=== PATIENT | female | born 2000 | race Caucasian/White ===

== ENCOUNTER 2023-12-22 00:54 | Inpatient (IN) | payer BC, MEDICAID ==
[2023-12-22 01:24] VITALS: BMI 28.6
[2023-12-22] MEDS ORDERED: fentaNYL 50 mcg/mL 1 mL Vial SLOW IVP PRN (01:58)
[2023-12-22] MEDS ORDERED: Tranexamic Acid 1,000 MG/10 ML VIAL IVP PRN (01:58)
[2023-12-22] MEDS ORDERED: Promethazine HCl 25 MG/ML VIAL IM PRN ×2 (02:00→06:17)
[2023-12-22] MEDS ORDERED: Ibuprofen 800 MG TAB PO PRN (02:00)
[2023-12-22] MEDS ORDERED: Carboprost 250 MCG/ML AMP IM PRN (02:00)
[2023-12-22] MEDS ORDERED: Misoprostol 200 MCG TAB RC PRN (02:00)
[2023-12-22] MEDS ORDERED: hydrALAZINE 20 MG/ML VIAL SLOW IVP PRN ×2 (02:00→12:34)
[2023-12-22] MEDS ORDERED: Acetaminophen 500 MG TAB PO PRN (02:00)
[2023-12-22] MEDS ORDERED: Diphenoxylate HCl/Atropine Tablet PO PRN ×2 (02:00)
[2023-12-22] MEDS ORDERED: HYDROcodone/Acetaminophen 5/325 mg Tablet PO PRN ×3 (02:00→12:34)
[2023-12-22] MEDS ORDERED: Methylergonovine 0.2 MG/ML VIAL IM PRN (02:00)
[2023-12-22] MEDS ORDERED: Lidocaine 1% (PF) 30 ML VIAL SC PRN (02:00)
[2023-12-22] MEDS ORDERED: Ondansetron PF 4 MG/2 ML Vial IVP PRN ×3 (02:00→12:34)
[2023-12-22 02:25] LABS: Hemoglobin 11.7 g/dL (12.0-15.5); Mean Corpuscular HGB CONC 34.4 g/dL (32.0-36.0); Mean Corpuscular Hemoglobin 28.3 pg (27.0-33.0); Mean Corpuscular Volume 82.1 fl (81.6-98.3); Mean Platelet Volume 11.1 fl (7.4-10.4); Platelet Count 246 10x3/uL (150-450); RBC Distribution Width 13.6 % (11.5-14.5); Red Blood Cell (RBC) Count 4.14 10x6/uL (3.90-5.03)
[2023-12-22 03:01] LABS: Syphilis Antibody Nonreactive (Nonreactive); Syphilis Antibody Index 0.28 S/CO (<1.00 Non-Reactive)
[2023-12-22 03:03] LABS: HBsAg Index 0.15 S/CO (0-0.99); Hep B Surf Ag - L&D Non-Reactive S/CO (NonReactive)
[2023-12-22] MEDS: Lactated Ringer's 1,000 ML IV SCH (05:30)
[2023-12-22] MEDS: fentaNYL/Ropivacaine Epidural 100 ML ONE (06:12)
[2023-12-22] MEDS ORDERED: ePHEDrine Sulfate 50 MG/10 ML VIAL SLOW IVP PRN (06:17)
[2023-12-22] MEDS ORDERED: Naloxone HCl 0.4 mg/ml Vial IVP PRN ×2 (06:17)
[2023-12-22] MEDS ORDERED: Acetaminophen 325 MG TAB PO PRN (06:17)
[2023-12-22] MEDS ORDERED: Moisturizing Cream (Eucerin) 113 GM JAR TOP PRN (06:17)
[2023-12-22] MEDS ORDERED: diphenhydrAMINE 50 MG/ML VIAL IVP PRN (06:17)
[2023-12-22] MEDS ORDERED: Lactated Ringer's 500 ML IV PRN (06:17)
[2023-12-22] MEDS ORDERED: fentaNYL 2 mcg/Ropivacaine 0.2% Epidural 100 ML CADD EPIDURAL SCH (06:30)
[2023-12-22] MEDS ORDERED: Communication Order-Pharmacy FS SCH (06:30)
[2023-12-22] MEDS: Oxytocin 30 units/NS 500 ML 500 ML IV SCH (06:45)
[2023-12-22] MEDS: Oxytocin 30 units/NS 500 ML 500 ML IVPB SCH (10:02)
[2023-12-22] MEDS ORDERED: diphenhydrAMINE 25 MG CAP PO PRN (12:34)
[2023-12-22] MEDS ORDERED: Bisacodyl 10 MG SUPP PR PRN (12:34)
[2023-12-22] MEDS ORDERED: Boostrix 0.5 ML (Tdap) VIAL (>/=7 yrs of age) IM ONE (12:34)
[2023-12-22] MEDS ORDERED: Lanolin Ointment 7 GM TUBE TOP PRN (12:34)
[2023-12-22] MEDS ORDERED: Oxytocin 30 units/NS 500 ML 500 ML IV SCH (12:34)
[2023-12-22] MEDS ORDERED: Preparation H Ointment 28 GM TUBE PR PRN (12:34)
[2023-12-22] MEDS ORDERED: Milk Of Magnesia 30 ML UDCUP PO PRN (12:34)
[2023-12-22] MEDS: Docusate 100 MG CAP PO SCH ×2 (12:45→21:27)
[2023-12-22] MEDS: Prenatal Vitamin 1 TAB PO SCH (12:45)
[2023-12-22] MEDS: Ibuprofen 800 MG TAB PO SCH (12:46)
[2023-12-22] MEDS: Benzocaine-Menthol 82.5 ML CAN TOP PRN (12:47)
[2023-12-22] MEDS: HYDROcodone/Acetaminophen 5/325 mg Tablet PO PRN (14:10)
[2023-12-22] MEDS: Ferrous Sulfate 325 MG TAB PO SCH (15:18)
[2023-12-22] MEDS ORDERED: Bupivacaine 0.25% HCL 30 ML VIAL ONE (16:03)
[2023-12-23] MEDS: Prenatal Vitamin 1 TAB PO SCH (09:15)
[2023-12-23 12:34] VITALS: BP 100/64; TEMP 97.6
== END 2023-12-23 14:05 | disposition home or self-care (01) | DRG 806 ==
LOC: CSHLD/OP 00:54 → CSHLD 01:37 → CSHPP 11:15
PROVIDERS: ADMIT Obstetrics & Gynecology; ATTEND Obstetrics & Gynecology
PROC: 10E0XZZ Delivery of Products of Conception, External Approach (ICD-10-PCS; principal; 2023-12-22)
PROC: 0KQM0ZZ Repair Perineum Muscle, Open Approach (ICD-10-PCS; 2023-12-22)
DX: O42.02 Full-term premature rupture of membranes, onset of labor within 24 hours of rupture (principal); O36.0930 Maternal care for other rhesus isoimmunization, third trimester, not applicable or unspecified; Z37.0 Single live birth; Z3A.38 38 weeks gestation of pregnancy; O70.1 Second degree perineal laceration during delivery
CPT/HCPCS: 36415; 85027; 86780; 86850; 86900; 86901; 87340; J0665; J2590; J7120

== ENCOUNTER 2024-05-03 13:39 | Emergency (ER) | payer BC, OTHER ==
[2024-05-03 14:27] LABS: #Basophils 0.03 10x3/uL (0.0-0.2); #Eosinphils 0.35 10x3/uL (0.0-0.5); #Neutrophils 5.73 10x3/uL (1.5-8.4); %Basophils 0.3 % (0.0-2.0); %Eosinophils 3.6 % (0.0-6.0); %Lymphocytes 32.5 % (18.0-47.0); %Monocytes 5.1 % (0.0-10.0); %Neutrophils 58.2 % (40.0-75.0); Hematocrit 42.1 % (34.9-44.5); Hemoglobin 13.7 g/dL (12.0-15.5); Mean Corpuscular HGB CONC 32.5 g/dL (32.0-36.0); Mean Corpuscular Hemoglobin 27.7 pg (27.0-33.0); Mean Corpuscular Volume 85.1 fL (81.6-98.3); Mean Platelet Volume 9.7 fL (7.4-10.4); Platelet Count 306 10x3/uL (150-450); RBC Distribution Width 13.4 % (11.5-14.5); Red Blood Cell (RBC) Count 4.95 10x6/uL (3.90-5.03); White Blood Cell (WBC) Count 9.8 10x3/uL (3.5-10.5)
[2024-05-03 14:37] LABS: Bilirubin Neg (Negative); Blood, Urine 150 (Negative); Clarity Clear (Clear); Glucose, Urine (Dipstick) Normal (Negative); Ketone, Urine Negative (Negative); Leukocyte Negative (Negative); Nitrite Negative (Negative); Protein, Urine (Dipstick) 15 mg/dl (Neg-Trace); Urobilinogen Normal mg/dL (Less than 2)
[2024-05-03 14:41] LABS: Pregnancy Test - Urine (BHCG) Negative (Negative); Pregu Control Background? CLEAR/WHITE (CLR/WHITE); Pregu Control Bar Appear? YES (CONTROL BAR)
[2024-05-03 14:44] LABS: Anion Gap 13 mmol/L (10-20); BUN (Urea Nitrogen) 14 mg/dL (7.0-18.7); Calc. Creatinine Clearance 0 mL/min (70-130); Calcium 9.7 mg/dL (7.8-10.44); Carbon Dioxide 26 mmol/L (22-29); Chloride 105 mmol/L (98-107); Estimated GFR 105; Glucose 66 mg/dL (70-105); Lipase 34 U/L (8-78); Potassium 3.8 mmol/L (3.5-5.1); Sodium 140 mmol/L (136-145)
[2024-05-03 15:01] LABS: Bacteria/HPF None Seen HPF (None Seen); CAUTI Indications for Culture Pelvic or flank pain; Squamous Epithelial 0-3 HPF (0-3); WBC/HPF 0-3 HPF (0-3)
[2024-05-03 15:02] LABS: Urine Culture Reflex No No
[2024-05-03 15:38] LABS: ALT (SGPT) 33 U/L (8-55); AST (SGOT) 28 U/L (5-34); Albumin 4.3 g/dL (3.5-5.0); Alkaline Phosphatase 113 U/L (40-110); Bilirubin, Direct 0.2 mg/dL (0.1-0.3); Bilirubin, Total 0.5 mg/dL (0.2-1.2); Protein, Total 7.4 g/dL (6.0-8.3)
== END 2024-05-03 16:29 | disposition home or self-care (01) ==
LOC: CSHERS 13:39
DX: R10.13 Epigastric pain (principal)
CPT/HCPCS: 36415; 76705; 80048; 81001; 81025; 83690; 85025